=== PATIENT | female | born 1955 | race Caucasian/White ===

== ENCOUNTER 2016-12-06 10:12 | Outpatient (CLI) | payer OTHER ==
--- NOTE | 2016-12-07 17:26 | Mammography Report ---
DIGITAL SCREENING MAMMOGRAM: 12/06/2016 CLINICAL INDICATION: A 61-year-old, for screening. COMPARISON: 11/2014, 11/2012, 09/2011, 08/2010, 07/2009, 10/2007. TECHNIQUE: Routine CC and MLO projections were obtained of the breasts. FINDINGS: The breasts again demonstrate scattered fibroglandular densities bilaterally. Coarse and p unctate, typically benign calcifications are present. No suspicious masses, clustered microcalcificat ions, or regions of architectural distortion are identified. IMPRESSION: BENIGN FINDINGS. RECOMMENDATION: ROUTINE ANNUAL SCREENING UNLESS OTHERWISE CLINICALLY INDICATED. BIRADS CATEGORY 2-BENIGN FINDINGS. STANDARD QUALIFYING STATEMENTS 1. This examination was reviewed with the aid of Computer-Aided Detection (CAD). 2. A negative or benign imaging report should not delay biopsy if clinically suspicious findings are present. Consider surgical consultation if warranted. More than 5% of cancers are not identified by i maging. 3. Dense breasts may obscure an underlying neoplasm. JOB #: [id number] EXT JOB #:[id number]
== END 2016-12-06 10:13 | disposition home or self-care (01) ==
LOC: DI.S 10:12
PROVIDERS: ATTEND Naturopath
DX: Z12.31 Encounter for screening mammogram for malignant neoplasm of breast (principal)
CPT/HCPCS: 77067

== ENCOUNTER 2017-05-02 08:37 | Outpatient (CLI) | payer OTHER ==
--- NOTE | 2017-05-02 11:07 | XRAY Report ---
EXAM: RIGHT FIRST DIGIT RADIOGRAPHY EXAM DATE: 05/02/2017 08:52 AM. CLINICAL HISTORY: Sharp pain in thenar surface and proximal joint of thumb for 3 months. COMPARISON: None. TECHNIQUE: 3 views. FINDINGS: Bones: No acute fracture or bony lesion. Moderate degenerative spurring along the first interphalange al joint with minimal degenerative spurring along the first metacarpophalangeal and carpometacarpal j oint. Joints: Mild dorsal subluxation of the distal phalanx at the interphalangeal joint. Moderate to marke d narrowing of the first interphalangeal with mild narrowing of the metacarpophalangeal and carpometa carpal joints. Soft Tissues: Normal. No soft tissue swelling. IMPRESSION: 1. Degenerative changes of the right first digit, greatest at the right first interphalangeal joint. [facility] Referring Provider Line: [phone] SITE ID: [id number]
--- NOTE | 2017-05-02 12:12 | XRAY Report ---
EXAM: RIGHT HAND RADIOGRAPHY EXAM DATE: 05/02/2017 09:00 AM. CLINICAL HISTORY: Sharp pain in thenar surface and proximal joint of thumb for 3 months. COMPARISON: None. TECHNIQUE: 3 views. FINDINGS: Bones: No acute fracture or bony lesion. No bony erosions. Degenerative spurring, largely along the r ight first interphalangeal joint and the right first metacarpophalangeal and first carpometacarpal anabelle int. Minimal degenerative spurring along the fifth DIP joint Joints: Joint space narrowing of the DIP and PIP joints and metacarpophalangeal joints with moderate to marked narrowing of the first interphalangeal joint. No dislocation. Soft Tissues: Normal. No soft tissue swelling. IMPRESSION: 1. Degenerative changes of the right hand, most prominently involving the right first interphalangeal joint. [facility] Referring Provider Line: [phone] SITE ID: [id number]
== END 2017-05-02 08:38 | disposition home or self-care (01) ==
LOC: DI.S 08:37
PROVIDERS: ATTEND Naturopath
DX: M19.041 Primary osteoarthritis, right hand (principal); M18.11 Unilateral primary osteoarthritis of first carpometacarpal joint, right hand
CPT/HCPCS: 73140

== ENCOUNTER 2017-06-20 08:03 | Outpatient (CLI) | payer OTHER ==
--- NOTE | 2017-06-20 12:42 | XRAY Report ---
DATE OF SERVICE: 06/20/2017 TWO-VIEW THORACIC SPINE: 06/20/2017 CLINICAL INDICATION: Pain, history of compression fracture. COMPARISON: None. FINDINGS: Frontal and lateral views of the thoracic spine demonstrate mild degenerative disk disease. There is mild anterior wedge compression deformity of T7, which appears chronic. No acute fracture is seen. No paraspinal hematoma is appreciated. IMPRESSION: CHRONIC APPEARING COMPRESSION FRACTURE OF T7. NO EVIDENCE OF ACUTE FRACTURE. TD: 06/20/2017 12:42
--- NOTE | 2017-06-20 12:44 | XRAY Report ---
DATE OF SERVICE: 06/20/2017 TWO-VIEW LUMBAR SPINE: 06/20/2017 CLINICAL INDICATION: Pain. FINDINGS: AP, lateral views of the lumbar spine demonstrate moderate degenerative disk and facet disease. There is minimal anterolisthesis of L5 on S1, and mild levoscoliosis, likely degenerative in etiology. No bowel dilatation is seen. IMPRESSION: MODERATE DEGENERATIVE CHANGES, WITH MILD LEVOSCOLIOSIS AND MINIMAL ANTEROLISTHESIS OF L5 ON S1. TD: 06/20/2017 12:43
== END 2017-06-20 08:04 | disposition home or self-care (01) ==
LOC: DI 08:03
PROVIDERS: ATTEND Physician Assistant
DX: S22.069D Unspecified fracture of T7-T8 vertebra, subsequent encounter for fracture with routine healing (principal); M51.34 Other intervertebral disc degeneration, thoracic region; M51.36 Other intervertebral disc degeneration, lumbar region; M47.896 Other spondylosis, lumbar region; M43.17 Spondylolisthesis, lumbosacral region; M41.86 Other forms of scoliosis, lumbar region
CPT/HCPCS: 72070; 72100

== ENCOUNTER 2019-04-07 10:25 | Outpatient (CLI) | payer OTHER ==
--- NOTE | 2019-04-08 09:36 | Mammography Report ---
Reason: SCREENING MAMMO Procedure Date: 04/07/2019 Accession Number: [id number] / [id number] Procedure: [facility] - Screening Mammo w/Renato CPT Code: Final Report FULL RESULT: EXAM: Screening Mammo w/Renato DATE: 04/07/2019 11:16 AM CLINICAL HISTORY: Screening encounter. History of early menses. History of endometrial cancer status post hysterectomy 1998. TECHNIQUE: (B) - Bilateral CC and MLO views were obtained. COMPARISON: 12/06/2016 through 08/17/2009. PARENCHYMAL PATTERN: (A) - The breast(s) demonstrate(s) scattered fibroglandular densities. FINDINGS: Coarse typically benign calcifications are redemonstrated. There are no suspicious masses, calcifications, or areas of distortion. IMPRESSION: Benign findings. BI-RADS category 2. RECOMMENDATION: (ANNUAL) - Recommend routine annual screening mammography. BI-RADS CATEGORY: (2) - Benign Findings. STANDARD QUALIFYING STATEMENTS: 1. This examination was not reviewed with the aid of Computer-Aided Detection (CAD). 2. A negative or benign imaging report should not preclude biopsy if clinically suspicious findings are present. 3. Dense breasts may obscure an underlying neoplasm. 4. This examination was reviewed with the aid of 3D breast imaging (tomosynthesis).
== END 2019-04-07 10:26 | disposition home or self-care (01) ==
LOC: DI 10:25
PROVIDERS: ATTEND Physician Assistant
DX: Z12.31 Encounter for screening mammogram for malignant neoplasm of breast (principal)
CPT/HCPCS: 77063; 77067

== ENCOUNTER 2019-06-11 12:23 | Day surgery (SDC) | payer OTHER ==
[2019-06-11] MEDS ORDERED: MIDAZOLAM 2 MG/2 ML VIAL IVP ONE (12:24)
[2019-06-11] MEDS ORDERED: fentaNYL 100 MCG/2 ML VIAL IVP ONE (12:24)
[2019-06-11] MEDS ORDERED: LACTATED RINGERS 1,000 ML IV ONE (12:35)
[2019-06-11 15:20] VITALS: BP 103/56
== END 2019-06-11 12:24 | disposition home or self-care (01) ==
LOC: SDS 12:23
PROVIDERS: ATTEND Surgery
PROC: 0DJD8ZZ Inspection of Lower Intestinal Tract, Via Natural or Artificial Opening Endoscopic (ICD-10-PCS; principal; 2019-06-11 14:00)
DX: Z12.11 Encounter for screening for malignant neoplasm of colon (principal); K64.4 Residual hemorrhoidal skin tags; K64.8 Other hemorrhoids; Z86.010 Personal history of colon polyps; R73.9 Hyperglycemia, unspecified; Q43.8 Other specified congenital malformations of intestine
CPT/HCPCS: 45378; J7120

== ENCOUNTER 2019-06-16 11:13 | Outpatient (CLI) | payer OTHER ==
[2019-06-16] MEDS ORDERED: IOVERSOL 320 50 ML VIAL ONE (11:33)
[2019-06-16] MEDS ORDERED: IOVERSOL 320 100 ML VIAL IVP ONE ×2 (11:33→12:46)
[2019-06-16 11:43] LABS: ALBUMIN 4.6 g/dL (3.2-5.5); ALBUMIN/GLOBULIN RATIO 1.8 (1.0-2.2); BILIRUBIN,TOTAL 0.9 mg/dL (0.2-1.0); CALCIUM 9.7 mg/dL (8.5-10.3); CREATININE 0.8 mg/dL (0.4-1.0); TOTAL PROTEIN 7.1 g/dL (6.7-8.2)
--- NOTE | 2019-06-16 13:34 | CT Report ---
Reason: LLQ MASS Procedure Date: 06/16/2019 Accession Number: [id number] / [id number] Procedure: CT - Abdomen/Pelvis W CPT Code: Final Report FULL RESULT: EXAM: CT ABDOMEN AND PELVIS EXAM DATE: 06/16/2019 01:06 PM. CLINICAL HISTORY: Left lower quadrant mass COMPARISONS: None. TECHNIQUE: Routine helical CT imaging was performed through the abdomen and pelvis. IV contrast: 100 mL Optiray 320. Enteric contrast: Yes. Reconstructions: Coronal and sagittal. In accordance with CT protocol optimization, one or more of the following dose reduction techniques were utilized for this exam: automated exposure control, adjustment of mA and/or KV based on patient size, or use of iterative reconstructive technique. FINDINGS: Lung Bases: Clear. Liver: Normal. No focal hepatic lesion. Gallbladder/Bile Ducts: Unremarkable. No visualized stones or biliary ductal dilatation. Spleen: Normal. Pancreas: Normal. Adrenal Glands: Normal. Kidneys and Ureters: Circumscribed hypoattenuating foci measuring 3 mm in the posterior right upper pole (3/30) and 6 mm in the lateral left lower pole (3/26) are too small to definitively characterize but likely represent cysts. No stones, hydronephrosis, or hydroureter. Peritoneal Cavity/Bowel: Moderate to large stool volume throughout the colon. No evidence for bowel obstruction or acute inflammatory process. The appendix is not seen. No free fluid, pneumoperitoneum, or adenopathy. Retroperitoneum: Multiple surgical clips anterior to the IVC and in the right pelvic retroperitoneum. Pelvic Organs: Post hysterectomy. The bladder is within normal limits. Vasculature: Mild atherosclerotic calcifications within the aorta. Bones: Mild left convex curvature centered at L2-L3. Moderate facet arthropathy in the lower lumbar spine. No acute bony abnormality. Other: Small right inguinal hernia containing fat and trace fluid with a loop of small bowel protruding into the hernia neck. Small fat-containing left inguinal hernia. IMPRESSION: 1. Moderate to large colonic stool volume. No alternate potential etiology identified for reported left lower quadrant mass. 2. Small right inguinal hernia containing fat and trace fluid with a loop of small bowel protruding into the hernia neck. No evidence for associated bowel obstruction. 3. Small fat-containing left inguinal hernia. [facility] The call report notification system was initiated by Dr. Melita Fletcher at 01:29 PM on 06/16/2019. The above call report findings were discussed with Nieves Arora by Dr. Melita Fletcher at 01:32 PM on 06/16/2019.
== END 2019-06-16 11:14 | disposition home or self-care (01) ==
LOC: DI 11:13
PROVIDERS: ATTEND Nurse Practitioner Family
DX: K40.20 Bilateral inguinal hernia, without obstruction or gangrene, not specified as recurrent (principal)
CPT/HCPCS: 36415; 74177; 80053; Q9967

== ENCOUNTER 2020-12-27 08:50 | Outpatient (CLI) | payer MEDICARE ==
[2020-12-27 15:40] LABS: ALBUMIN 4.1 g/dL (3.2-5.5); ALBUMIN/GLOBULIN RATIO 1.6 (1.0-2.2); ALKALINE PHOSPHATASE 46 IU/L (42-121); ALT ALANINE AMINOTRANSFERASE 17 IU/L (10-60); AST ASPARTATE AMINOTRANSFERASE 19 IU/L (10-42); BUN - BLOOD UREA NITROGEN 11 mg/dL (6-20); CALCIUM 9.1 mg/dL (8.5-10.3); CARBON DIOXIDE - CO2 26 mmol/L (21-32); CHLORIDE 102 mmol/L (101-111); CHOL/HDL RATIO 3.1 (<4.4); CHOLESTEROL 205 mg/dL; CK- CREATINE KINASE 73 IU/L (22-269); CREATININE 0.7 mg/dL (0.4-1.0); GFR - MDRD 84 (>89); GLUCOSE 92 mg/dL (70-100); HDL CHOLESTEROL 67 mg/dL; LDL CHOLESTEROL,CALCULATED 125 mg/dL; LDL/HDL RATIO 1.9 (<4.4); POTASSIUM 4.2 mmol/L (3.5-5.0); SODIUM 137 mmol/L (135-145); TOTAL PROTEIN 6.6 g/dL (6.7-8.2); TRIGLYCERIDES 64 mg/dL; VLDL CHOLESTEROL 13 mg/dL
[2020-12-27 15:46] LABS: CRP - C-REACTIVE PROTEIN < 1.0 mg/dL (0-1.0)
[2020-12-27 15:48] LABS: THYROID STIMULATING HORMONE 0.22 uIU/mL (0.34-5.60)
[2020-12-27 16:26] LABS: FREE T4 (FREE THYROXINE) 1.48 ng/dL (0.58-1.64)
== END 2020-12-27 08:51 | disposition home or self-care (01) ==
LOC: LAB.S 08:50
PROVIDERS: ATTEND Nurse Practitioner Family
DX: E03.9 Hypothyroidism, unspecified (principal); M62.89 Other specified disorders of muscle; E78.5 Hyperlipidemia, unspecified; R94.4 Abnormal results of kidney function studies
CPT/HCPCS: 36415; 80053; 80061; 82550; 83721; 84439; 84443; 85651; 86140

== ENCOUNTER 2021-02-16 16:27 | Outpatient (CLI) | payer MEDICARE | END 2021-02-16 16:28 | disposition home or self-care (01) | LOC: COV 16:27 | PROVIDERS: ATTEND Family Medicine | DX: R05 Cough (principal); M79.10 Myalgia, unspecified site; R51.9 Headache, unspecified; R53.83 Other fatigue; R07.0 Pain in throat; R09.81 Nasal congestion; J34.89 Other specified disorders of nose and nasal sinuses; R06.7 Sneezing; R43.8 Other disturbances of smell and taste; Z20.822 Contact with and (suspected) exposure to COVID-19 ==

== ENCOUNTER 2021-07-28 18:53 | Emergency (ER) | payer MEDICARE ==
[2021-07-28 18:59] VITALS: BP 169/80
--- NOTE | 2021-07-28 19:34 | ED Physician Documentation ---
PD HPI UPPER EXT INJURY - Stated complaint Stated Complaint: LT FING LAC - Chief complaint Chief Complaint: Laceration - History obtained from History obtained from: Patient - History of Present Illness Location: Left, Finger Type of injury: Laceration Where injury occurred: Home Timing - onset: Enter time (18:00), Today Similar symptoms before: Has not had sx before - Additonal information Additional information: sustained left middle finger laceration when using a knife at home approximately 6 PM tonight. She is right-hand dominant Review of Systems Skin: reports: Laceration (s) Neurologic: denies: Numbness PD PAST MEDICAL HISTORY - Past Medical History Cardiovascular: None Respiratory: None Neuro: None Endocrine/Autoimmune: HyPOthyroidism GI: None : None HEENT: Chronic vision loss, Other Psych: None Musculoskeletal: Osteoarthritis, Osteopenia, Scoliosis Derm: None - Past Surgical History General: Colonoscopy /[employer]MER: Hysterectomy, Oophrectomy - Present Medications Home Medications: Ambulatory Orders Medication Instructions Recorded Confirmed Levothyroxine [Synthroid] 125 mcg PO QDAC 12/14/19 12/14/19 Ondansetron Odt [Zofran Odt] 4 mg TL Q6H PRN #10 tablet 12/21/19 oxyCODONE [Roxicodone] 5 mg PO Q4-6H PRN #20 tablet 12/21/19 - Allergies Allergies/Adverse Reactions: Allergies Allergy/AdvReac Type Severity Reaction Status Date / Time No Known Drug Allergies Allergy Verified 07/28/21 18:59 - Social History Does the pt smoke?: No Smoking Status: Former smoker (quit 30 years ago) PD ED PE NORMAL - Vitals Vital signs reviewed: Yes - General General: Alert and oriented X 3, No acute distress, Well developed/nourished - Neuro Neuro: No motor deficit (FROM left third digit, flexion and extension), No sensory deficit (LTS intact left middle finger at fingertip), Other (1 cm flap/bevelled laceration to left middle finger distal to DIP joint at anteromedial aspect, no involvement of nail ) Results - Vitals Vitals: Oxygen O2 Source Room air Procedures - Laceration (location) Finger left Length in cm: 1 Wound type: Flap, Clean Neurovascular status: Sensory intact, Motor intact, Vascular intact Skin layer closure: Dermabond, Other (after adequate time for dermabond to dry, tstrip applied) Other: Patient tolerated well, Tetanus UTD PD MEDICAL DECISION MAKING - ED course Complexity details: considered differential, d/w patient Departure - Departure Disposition: 01 Home, Self Care Clinical Impression: Laceration of left middle finger Qualifiers: Encounter type: initial encounter Damage to nail status: without damage Foreign body presence: without foreign body Qualified Code(s): S61.213A - Laceration without foreign body of left middle finger without damage to nail, initial encounter Condition: Good Instructions: ED Laceration Ext Skin Glue Follow-Up: ANDIE BOLTON ARNP [Primary Care Provider] - Comments: As we discussed, you can follow up with your primary care provider in 5-7 days for a recheck of the injury. However, if you do not have any concerns (such as redness, decreased sensation, pain that is not controlled with [id number] analgesics), follow up is not necessary. You can remove the adhesive strip in one week. The tissue adhesive (glue) might peel off when the overlying adhesive strip is removed; if the glue remains in place, it will eventually fall of on its own. Use the finger splint for the first 5 days to minimize movement of the finger. Discharge Date/Time: 07/28/21 20:40
[2021-07-28] MEDS ORDERED: TETANUS/DIPHTHERIA/PERTUSSIS 0.5 ML SYRINGE IM ONE (20:30)
== END 2021-07-28 20:40 | disposition home or self-care (01) ==
LOC: ED 18:53
DX: S61.213A Laceration without foreign body of left middle finger without damage to nail, initial encounter (principal); W26.0XXA Contact with knife, initial encounter; Y92.009 Unspecified place in unspecified non-institutional (private) residence as the place of occurrence of the external cause; Z23 Encounter for immunization; Z71.85 Encounter for immunization safety counseling
CPT/HCPCS: 12001; 90471; 99282

== ENCOUNTER 2021-09-11 09:55 | Outpatient (CLI) | payer MEDICARE ==
--- NOTE | 2021-09-12 16:15 | Mammography Report ---
BILATERAL DIGITAL SCREENING MAMMOGRAM 3D/2D: 09/11/2021 CLINICAL: Routine screening. Comparison is made to exams dated: 04/07/2019 mammogram, 12/06/2016 mammogram, and 11/26/2014 mammogra m - [facility]. There are scattered fibroglandular elements in both breasts. No significant masses, calcifications, or other findings are seen in either breast. There has been no significant interval change. IMPRESSION: NEGATIVE There is no mammographic evidence of malignancy. A 1 year screening mammogram is recommended. This exam was interpreted at Station ID: [id number]. NOTE: For mammograms, a report in lay terms will be sent to the patient. Approximately 15% of breast malignancies will not be visualized mammographically. In the management of a palpable breast mass, a negative mammogram must not discourage biopsy of a clinically suspicious lesion. Electronically Signed By: Gurpreet Salazar M.D. aty/penrad:09/11/2021 16:33:16 ACR BI-RADS Category 1: Negative 3341F PARENCHYMAL PATTERN: (A) - The breast(s) demonstrate(s) scattered fibroglandular densities. BI-RADS CATEGORY: (1) - 1 RECOMMENDATION: (ANNUAL) - Recommend routine annual screening mammography. [id number] 1 year screening LATERALITY: (B)
== END 2021-09-11 09:56 | disposition home or self-care (01) ==
LOC: DI.S 09:55
PROVIDERS: ATTEND Nurse Practitioner Family
DX: Z12.31 Encounter for screening mammogram for malignant neoplasm of breast (principal)

== ENCOUNTER 2021-10-05 15:03 | Outpatient (CLI) | payer MEDICARE | END 2021-10-05 15:04 | disposition home or self-care (01) | LOC: LAB.S 15:03 | PROVIDERS: ATTEND Nurse Practitioner Family | DX: E03.9 Hypothyroidism, unspecified (principal) | CPT/HCPCS: 36415; 84443 ==

== ENCOUNTER 2022-07-23 13:51 | Outpatient (CLI) | payer MEDICARE ==
--- NOTE | 2022-07-23 17:51 | XRAY Report ---
PROCEDURE: Shoulder 3 View RT INDICATIONS: PAIN OF RIGHT SHOULDER JOINT TECHNIQUE: 3 views of the shoulder were acquired. COMPARISON: None. FINDINGS: Bones: No fractures or dislocations. No suspicious bony lesions. Visualized ribs appear intact. Soft tissues: No suspicious soft tissue calcifications. IMPRESSION: Normal right shoulder Reviewed by: Luis Castillo on 07/23/2022 4:49 PM [facility] Approved by: Luis Castillo on 07/23/2022 4:49 PM [facility] Station ID: [id number]
== END 2022-07-23 13:52 | disposition home or self-care (01) ==
LOC: DI.S 13:51
PROVIDERS: ATTEND Nurse Practitioner Family
DX: M25.511 Pain in right shoulder (principal)

== ENCOUNTER 2022-08-02 12:56 | Outpatient (CLI) | payer MEDICARE ==
--- NOTE | 2022-08-02 20:19 | XRAY Report ---
PROCEDURE: Cervical Spine 2 View INDICATIONS: ATROPHY OF MUSCLE OF RIGHT SHOULDER TECHNIQUE: 3 view(s) of the cervical spine were acquired. COMPARISON: None. FINDINGS: Bones: No fractures or dislocations to the T1 level. The lateral masses of C1 appear intact on the odontoid view. No suspicious bony lesions. Multilevel degenerative disc disease, moderate at C3-C4, C4-C5, C5-C6 and C6-C7. Moderate facet arthropathy bilaterally, most pronounced at C4-5. Soft tissues: No prevertebral soft tissue swelling. IMPRESSION: Moderate degenerative disc and facet disease. Reviewed by: Liz Hill MD on 08/02/2022 7:18 PM [facility] Approved by: Liz Hill MD on 08/02/2022 7:18 PM [facility] Station ID: [id number]
== END 2022-08-02 12:57 | disposition home or self-care (01) ==
LOC: DI.S 12:56
PROVIDERS: ATTEND Nurse Practitioner Family
DX: M47.812 Spondylosis without myelopathy or radiculopathy, cervical region (principal); M50.31 Other cervical disc degeneration, high cervical region

== ENCOUNTER 2022-12-14 09:29 | Outpatient (CLI) | payer MEDICARE ==
--- NOTE | 2022-12-14 11:43 | MRI Report ---
PROCEDURE: CERVICAL SPINE WO INDICATIONS: CERVICAL DISC DEGENERATION TECHNIQUE: Noncontrast sagittal T1 spin echo and T2 fast spin echo, sagittal STIR, foraminal oblique sagittal T2 fast spin echo, and axial gradient echo or T2 fast spin echo through the cervical spine. COMPARISON: Cervical spine plain films dated 08/02/2022. FINDINGS: Image quality: Excellent. Alignment and Curvature: Trace retrolisthesis of C3 on C4 and of C4 on C5. Bone Marrow: Marrow demonstrates normal overall signal. Spinal Cord: Visualized spinal cord has normal size and signal. No cerebellar tonsillar herniation. Paraspinous Soft Tissues: No paravertebral masses. Prevertebral soft tissues are normal in thicknes s. C2-C3: Normal in appearance. C3-C4: Chronic disc height loss. Mild retrolisthesis of C3 on C4. Posterior disc osteophyte complex flattening the ventral aspect of the cord. AP diameter of the central canal is 9 mm. Bilateral uncov ertebral joint hypertrophy. Moderate to severe bilateral foraminal narrowing with a degree of bilater al foraminal C4 nerve root impingement. C4-C5: Chronic disc height loss. Trace retrolisthesis of C4 on C5. Diffuse posterior disc plus osteo phyte, abutting the cord to the left of midline. AP diameter of the central canal is 10.3 mm. However , there is mild to moderate narrowing of the left side of the canal. Bilateral uncovertebral joint hy pertrophy. Left facet hypertrophy. Moderate to severe bilateral foraminal narrowing with a degree of bilateral foraminal C5 nerve root impingement. C5-C6: Mild chronic disc height loss. Posterior disc plus osteophyte with minimal superimposed left paracentral disc protrusion. AP diameter of the central canal is 9.9 mm. There is mild narrowing of t he left side of the canal. Bilateral uncovertebral joint hypertrophy. Left facet hypertrophy. Moderat e right foraminal narrowing with mild flattening deformity on the exiting right C6 nerve root. C6-C7: Chronic disc height loss. Posterior disc plus osteophyte. AP diameter of the canal is 10.3 mm . There is mild narrowing of the left side of the canal. There is bilateral uncovertebral joint hyper trophy. There is moderate right foraminal narrowing with flattening deformity on the exiting right C7 nerve root. C7-T1: No canal stenosis or foraminal stenosis. IMPRESSION: 1. Diffuse spondylitic change with multilevel disc height loss and uncovertebral joint hypertrophy. 2. There is mild to moderate canal stenosis at C3-C4. There is multilevel narrowing of the left side of the canal, from C4-C5 through C6-C7. 3. Multilevel foraminal narrowing as described above. Exam includes moderate to severe bilateral foraminal narrowing at C3-C4 and C4-C5. There is moderate right foraminal narrowing at C5-C6 and C6-C7. Reviewed by: Ramiro Irizarry MD on 12/14/2022 11:41 AM PDT Approved by: Ramiro Irizarry MD on 12/14/2022 11:41 AM PDT Station ID: [id number]
== END 2022-12-14 09:30 | disposition home or self-care (01) ==
LOC: DI 09:29
PROVIDERS: ATTEND Orthopaedic Surgery
DX: M50.31 Other cervical disc degeneration, high cervical region (principal); M47.812 Spondylosis without myelopathy or radiculopathy, cervical region; M48.02 Spinal stenosis, cervical region

== ENCOUNTER 2023-03-29 08:16 | Outpatient (CLI) | payer MEDICARE ==
[2023-03-29] MEDS ORDERED: iohexoL-300 100 ML VIAL IVP ONE (11:31)
[2023-03-29] MEDS ORDERED: BARIUM SULFATE 1,900 ML BOTTLE RC ONE (12:20)
--- NOTE | 2023-03-31 14:17 | CT Report ---
PROCEDURE: ABDOMEN/PELVIS W INDICATIONS: ABD MASS CONTRAST: 100ml omni 300 TECHNIQUE: After the administration of oral and IV contrast, 5 mm thick sections acquired from the diaphragms to the symphysis. 5 mm thick coronal and sagittal reformats were acquired. For radiation dose reducti on, the following was used: automated exposure control, adjustment of mA and/or kV according to chace ent size. COMPARISON: CT of abdomen and pelvis, 06/16/2019. FINDINGS: Image quality: Excellent. Lung bases and heart: Unremarkable. Small hiatal hernia. Liver: No solid mass. Gallbladder and biliary tree: Normal gallbladder. No biliary dilation. Spleen: No splenomegaly. Pancreas: No pancreatic ductal dilation. Adrenals: No adrenal nodule. Kidneys and ureters: No hydronephrosis. No renal cystic lesion which requires follow up. No solid mas s. Bowel and peritoneum: Stomach is distended. There is an air-fluid level in stomach. No bowel distensi on. No pathologic free fluid. There is a large amount of stool in colon. Lymph nodes: No central or retroperitoneal adenopathy. Vessels: No infrarenal aortic aneurysm. PELVIS Reproductive organs: Unremarkable. Bladder: No abnormal wall thickening, accounting for underdistension. Pelvic lymph nodes: No pelvic adenopathy by size criteria. Bones: Grade 1 anterolisthesis of L4 on L5 and L5 on S1. There is mild central depression of T10. Deg enerative changes noted in the lower thoracic spine and lumbar spine. No aggressive osseous abnormali ty. Other: There is a fat-containing ventral hernia at midline above umbilicus. A smaller fat-containing ventral hernia hernia is seen just superior. No inguinal hernia. There is a 2 cm cyst in the right inguinal area, which was present on the last ex am dated 06/16/2019. IMPRESSION: 1. There are 2 small fat-containing ventral hernias above umbilicus. 2. Stomach is distended. 3. A large amount of stool in colon. 4. A 2 cm cyst in the right inguinal area. Differential diagnoses are lymphangioma and seroma. Reviewed by: Liz Hill MD on 03/31/2023 2:16 PM PST Approved by: Liz Hill MD on 03/31/2023 2:16 PM PST Station ID: [id number]
== END 2023-03-29 08:17 | disposition home or self-care (01) ==
LOC: DI 08:16
PROVIDERS: ATTEND Registered Nurse
DX: K43.9 Ventral hernia without obstruction or gangrene (principal); R19.03 Right lower quadrant abdominal swelling, mass and lump
CPT/HCPCS: 74177; A9270; Q9967